=== PATIENT | female | born 1985 | race African-American/Black ===

== ENCOUNTER 2016-12-09 09:44 | Emergency (ER) | payer OTHER ==
[~2016-12-09] VITALS: Ht 160 cm; Wt 140.8 kg
[2016-12-09 10:45] LABS: HEMATOCRIT 39.6 % (36.0-46.0); MCHC 32.1 G/DL (30.0-36.0); MCV 93.6 FL (83-99); MEAN PLAT.VOLUME 11.2 uM^3 (9.5-12.4); PLATELET COUNT 204 K/uL (156-360); RBC DIS.WIDTH-CV 12.6 % (11.8-14.6); RBC DIS.WIDTH-SD 41.9 % (39-53); RED BLOOD COUNT 4.23 M/uL (3.80-5.20); WHITE BLOOD COUNT 5.8 K/uL (4.1-10.2)
[2016-12-09 10:56] LABS: CHLORIDE 105 mEq/L (99-109); POTASSIUM 3.9 mEq/L (3.7-5.4); SODIUM 138 mEq/L (136-147)
[2016-12-09 10:58] LABS: GLUCOSE 125 mg/dL (70-99)
[2016-12-09 10:59] LABS: ANION GAP 6 MEQ/L (2-14)
[2016-12-09 11:00] LABS: TOTAL BILIRUBIN 0.5 mg/dL (0.0-1.0)
[2016-12-09 11:01] LABS: ALKALINE PHOSPHATASE 73 IU/L (3-129)
[2016-12-09 11:02] LABS: GFR ESTIMATE (CALCULATED) > 59 mL/min/
[2016-12-09 11:03] LABS: UREA NITROGEN (BUN) 10 mg/dL (9-23)
[2016-12-09 12:45] LABS: ADD MIUA? YES; BILIRUBIN NEGATIVE; BLOOD LARGE; COLOR DK YELLOW ((YELLOW)); GLUCOSE (STRIP) NEGATIVE; KETONES NEGATIVE; LEUKOCYTES TRACE; NITRITE NEGATIVE; PROTEIN (STRIP) TRACE; SPECIFIC GRAVITY 1.026 (1.000-1.030)
[2016-12-09 12:47] LABS: INTERNAL CONTROL VALID? YES
[2016-12-09 13:13] LABS: RED BLOOD CELLS TNTC /HPF (0-5)
[2016-12-09 13:14] LABS: BACTERIA RARE; CASTS NONE SEEN /LPF; CRYSTALS NONE SEEN; EPITHELIAL CELLS RARE; MUCUS NONE SEEN; UCUL ADDED? NO; WHITE BLOOD CELLS RARE /HPF (0-5)
[2016-12-09] MEDS ORDERED: TRAMADOL HCL50 MG PO (13:44)
[2016-12-09 13:50] VITALS: BP 152/67
== END 2016-12-09 13:50 | disposition home or self-care (01) ==
LOC: EME 09:44
PROVIDERS: Nurse Practitioner Family
DX: N93.8 Other specified abnormal uterine and vaginal bleeding (principal); D25.9 Leiomyoma of uterus, unspecified; E28.2 Polycystic ovarian syndrome; I10 Essential (primary) hypertension
CPT/HCPCS: 76856; 80053; 81003; 84703; 85027; 99281; 99284

== ENCOUNTER 2018-04-13 17:24 | Emergency (ER) | payer OTHER ==
[~2018-04-13] VITALS: Ht 160 cm; Wt 139.9 kg
[~2018-04-13 17:24] MED LIST: TRAMADOL HCL50 MG PO
[2018-04-13 18:17] LABS: HEMATOCRIT 40.5 % (36.0-46.0); MCH 30.4 PG (29.0-34.0); MCHC 32.1 G/DL (30.0-36.0); MCV 94.8 FL (83-99); RBC DIS.WIDTH-CV 12.7 % (11.8-14.6); RBC DIS.WIDTH-SD 44.1 % (39-53); RED BLOOD COUNT 4.27 M/uL (3.80-5.20); WHITE BLOOD COUNT 8.8 K/uL (4.1-10.2)
[2018-04-13 19:11] LABS: PLAT.SUFFICIENCY ADEQUATE; PLATELET COUNT 221 K/uL (156-360)
[2018-04-13] MEDS ORDERED: PROVERA,CYCRIN10 MG PO (22:09)
[2018-04-13 22:37] VITALS: BP 143/82
== END 2018-04-13 22:40 | disposition home or self-care (01) ==
LOC: RME 17:24 → EME 17:24 → RME 22:40
DX: N92.1 Excessive and frequent menstruation with irregular cycle (principal); R10.30 Lower abdominal pain, unspecified; R42 Dizziness and giddiness
CPT/HCPCS: 81003; 84702; 85027; 86900; 86901; 99281; 99284